=== PATIENT | female | born 1950 | race Caucasian/White ===

== ENCOUNTER 2016-11-06 09:33 | Day surgery (SDC) | payer BC, MEDICARE ==
--- NOTE | 2016-11-06 08:58 | PCM.OPNOTE ---
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 Redundant tissue near anastomosis. 2. Colon polyps Anesthesia Technique: MAC Primary Surgeon: Gregoria Mckinnon Anesthesia Provider: Jenise Hinojosa Pathology: 1. Redundant tissue near anastomosis 2. Ascending colon polyp 3. Descending colon polyp EBL in mLs: 1 Complications: None Condition: Good Free Text/Narrative:: FLUIDS: 400 mL crystalloid INDICATION FOR PROCEDURE: The patient is a 65-year-old woman who is a patient of Dr. Annette Moran. I previously performed a laparoscopic ileocecectomy. Performing a surveillance colonoscopy and the associated risks of the procedure had been discussed with the patient. The patient found these risks acceptable and agreed to proceed. DESCRIPTION OF PROCEDURE: The patient was taken to the operating room and placed in left lateral decubitus position. After induction of adequate sedation , a digital rectal exam was performed which was unremarkable. A standard adult Olympus colonoscope was inserted into the rectum and guided under direct visualization through the entire colon to the ileocecal anastomosis. Adjacent to the anastomosis, there was a fullness of the mucosa. This did not appear polypoid at all. Multiple cold forceps biopsies were taken of this area, it seemed like it was most likely redundant colonic tissue. The scope was then slowly withdrawn through the colon. There were 2 diminutive polyps that were sessile, in the ascending colon and descending colon respectively. These were both removed using cold forceps. The quality of the prep was good. There were no obvious diverticulum or angiodysplasias. The scope was withdrawn into the rectum and retroflexed. There was no significant prominence of the patient's internal hemorrhoids. The scope was straightened, the colon was desufflated, and the scope was withdrawn. The patient was awakened from sedation and transferred to the recovery room in stable condition having tolerated the procedure well. POSTOPERATIVE PLAN: I discussed with the patient's my intraoperative findings and recommendations. She will follow-up with me in approximately 2 weeks to discuss her endoscopy findings. She is to call with any questions or concerns prior to that time. She should continue following a high-fiber diet with taking a baby enteric-coated aspirin daily.
[~2016-11-06 09:33] MED LIST: Lactated Ringers 1,000 ML IV SCH; Lidocaine 1%/Sod Bicarbonate in NS 8.4% 1 ML Syringe PRN; Sodium Chloride 0.9% 10 ML Syringe FLUSH PRN
--- NOTE | 2016-11-06 10:44 | PCM.PREANE ---
Preanesthetic Assessment - Anesthesia/Transfusion/Family Hx Anesthesia History: Prior Anesthesia Without Reaction Family History of Anesthesia Reaction: No Transfusion History: No Prior Transfusion(s) - Review of Systems General: No Symptoms Pulmonary: No Symptoms Cardiovascular: No Symptoms Gastrointestinal: No symptoms Neurological: No Symptoms Other: Reports: Diabetes (pre diabetic), Thyroid Problems - Physical Assessment NPO Status Date: 11/05/16 (pills with sip) NPO Status Time: 01:00 Pulse: 62 O2 Sat by Pulse Oximetry: 94 Respiratory Rate: 16 Blood Pressure: 143/70 Temperature: 98.3 F Height: 5 ft Weight: 106.141 kg ASA Class: 3 Mental Status: Alert & Oriented x3 Airway Class: Mallampati = 1 Dentition: Reports: Dentures (full top and partial bottom), Partial (bottom) Thyro-Mental Finger Breadths: 3 Mouth Opening Finger Breadths: 3 ROM/Head Extension: Full Lungs: Clear to auscultation, Normal respiratory effort, Decreased breath sounds Cardiovascular: Regular Rate, Regular Rhythm - Allergies Allergies/Adverse Reactions: Allergies Allergy/AdvReac Type Severity Reaction Status Date / Time Influenza Virus Vaccines Allergy Rash Verified 11/05/16 17:20 metals Allergy Rash Uncoded 11/05/16 17:20 - Blood Blood Available: No - Anesthesia Plan Pre-Op Medication Ordered: Beta Buddy Beta Buddy: Atenolol Med Last Dose Date: 11/06/16 Med Last Dose Time: 08:30 - Acknowledgements Anesthesia Type Planned: MAC Pt an Appropriate Candidate for the Planned Anesthesia: Yes Alternatives and Risks of Anesthesia Discussed w Pt/Guardian: Yes Pt/Guardian Understands and Agrees with Anesthesia Plan: Yes PreAnesthesia Questionnaire HEENT History: Reports: Other (See Below) Other HEENT History: Corneal eye surgery, full upper denture, lower partial Cardiovascular History: Reports: High Cholesterol, Hypertension Other Cardiovascular History: palpations controlled with meds. 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: Reports: Musculoskeletal History: Reports: RA Other Musculoskeletal History: L knee pain, L plantar fasciitis, gastrocnemius equinus of L lower extremity, L achilles tendinitis, polyarthralgia Neurological History: Reports: None Psychiatric History: Reports: None Endocrine/Metabolic History: Reports: Hypothyroidism, Obesity/BMI 30+ Hematologic History: Reports: None Immunologic History: Reports: None Oncologic (Cancer) History: Reports: None Dermatologic History: Reports: None - Past Surgical History Head Surgeries/Procedures: Reports: None HEENT Surgical History: Reports: Eye Surgery, Other (See Below) Other HEENT Surgeries/Procedures: has corneal scrapped 3-4 yrs ago, eyelid surgery 2 yrs ago, has dry eyes and wears glasses. GI Surgical History: Reports: Appendectomy, Colonoscopy, Other (See Below) Other GI Surgeries/Procedures: laparoscopic ileocectomy Female Surgical History: Reports: Section Other Female Surgeries/Procedures: c/s x3, Musculoskeletal Surgical History: Reports: Arthroscopic Knee, Carpal Tunnel Other Musculoskeletal Surgeries/Procedures:: partial meniscectomy and chrondroplasty - SUBSTANCE USE Smoking Status *Q: Former Smoker (8 years ago) Second Hand Smoke Exposure: No Days Per Week of Alcohol Use: 0 (once or twice a month) Recreational Drug Use History: No - HOME MEDS Home Medications: Home Meds Atenolol [Tenormin] 50 mg PO DAILY 05/17/14 [History] Hydrocodone/Acetaminophen [[place] 5-325] 1 tab PO Q6H PRN 05/17/14 [History] Levothyroxine 150 mcg PO SUTUWETHSA 05/17/14 [History] amLODIPine [Norvasc] 5 mg PO DAILY 05/17/14 [History] Adalimumab [Humira Pen] 40 mg SUBCUT ASDIRECTED 01/09/15 [History] Calcium Carb & Citrate/Vit D3 [Calcium + D3 ER Tablet] 1 each PO DAILY 01/09/15 [History] Folic Acid 1,600 mcg PO BID 01/09/15 [History] Levothyroxine 175 mg PO MOFR 01/09/15 [History] Melatonin 5 mg PO BEDTIME PRN 01/09/15 [History] Methotrexate 10 tab PO MO 01/09/15 [History] Aspirin [Ecotrin] 81 mg PO DAILY 01/05/16 [History] Methylcellulose [Citrucel] 500 mg PO DAILY 01/05/16 [History] Rosuvastatin [Crestor] 10 mg PO DAILY 01/05/16 [History] - CURRENT (IN HOUSE) MEDS Current Meds: Current Medications Lactated Ringer's (Ringers, Lactated) 1,000 mls @ 125 mls/hr IV ASDIRECTED STEPHANI Stop: 11/06/16 23:00 Lidocaine/Sodium Bicarbonate (Buffered Lidocaine 1% In Ns 8.4%) 0.25 ml .XX ONETIME PRN PRN Reason: Prior to IV Start Stop: 11/06/16 18:00 Sodium Chloride (Saline Flush) 10 ml FLUSH ASDIRECTED PRN PRN Reason: Keep Vein Open Stop: 11/06/16 18:00
[2016-11-06] MEDS ORDERED: Propofol 200 MG/20 ML SDV ONE ×2 (11:54→12:17)
[2016-11-06] MEDS ORDERED: Lidocaine 1% 2 ML ONE (11:56)
--- NOTE | 2016-11-06 12:26 | PCM48HPAN ---
Post Anesthesia Note - EVALUATION WITHIN 48HRS OF ANESTHETIC Vital Signs in Normal Range: Yes Patient Participated in Evaluation: Yes Respiratory Function Stable: Yes Airway Patent: Yes Cardiovascular Function Stable: Yes Hydration Status Stable: Yes Pain Control Satisfactory: Yes Nausea and Vomiting Control Satisfactory: Yes Mental Status Recovered: Yes
[2016-11-06 13:20] VITALS: BP 146/74
== END 2016-11-06 12:50 | disposition home or self-care (01) ==
LOC: JD.SDS 09:33
PROVIDERS: ATTEND Surgery
DX: Z12.11 Encounter for screening for malignant neoplasm of colon (principal); D12.2 Benign neoplasm of ascending colon; D12.4 Benign neoplasm of descending colon; Z86.010 Personal history of colon polyps; I10 Essential (primary) hypertension; E78.2 Mixed hyperlipidemia; E66.01 Morbid (severe) obesity due to excess calories; E03.9 Hypothyroidism, unspecified; Z98.890 Other specified postprocedural states; Z79.82 Long term (current) use of aspirin; Z79.899 Other long term (current) drug therapy; Z87.891 Personal history of nicotine dependence
CPT/HCPCS: 45380; 88305; J7120; 00810; J2704